=== PATIENT | female | born 1940 | race Caucasian/White ===

== ENCOUNTER 2016-09-07 21:52 | Emergency (ER) | payer MEDICARE, OTHER ==
[~2016-09-07] VITALS: Ht 162.5 cm; Wt 56.7 kg
[~2016-09-07 21:52] MED LIST: ANTIVERT12.5 MG PO; ATENOLOL25 MG PO; GLYBURIDE5 MG PO; LANTUS100 U/ML SC
[2016-09-07] MEDS ORDERED: MORPHINE SULFAT15 MG PO (22:05)
[2016-09-07] MEDS ORDERED: LYRICA75 M1 PO (22:05)
[2016-09-07] MEDS ORDERED: CETIRIZINE10 MG PO (22:05)
[2016-09-07] MEDS ORDERED: CITALOPRAM40 MG PO (22:06)
[2016-09-07] MEDS ORDERED: ENABLEX7.5 MG PO (22:06)
[2016-09-07] MEDS ORDERED: LIPITOR20 MG PO (22:07)
[2016-09-07] MEDS ORDERED: VITAMIN B12 1541 TAB PO (22:07)
[2016-09-07] MEDS ORDERED: PLAVIX75 M1 PO (22:07)
[2016-09-07] MEDS ORDERED: CALCIUM 600 +1 EA11 PO (22:08)
[2016-09-07] MEDS ORDERED: GLYCOLAX17 GM/DOSE PO (22:08)
[2016-09-07] MEDS ORDERED: IRON325 M2 PO (22:08)
[2016-09-07] MEDS ORDERED: PREDNISONE10 MG PO (22:21)
== END 2016-09-07 23:05 | disposition home or self-care (01) ==
LOC: ED 21:52
DX: L23.7 Allergic contact dermatitis due to plants, except food (principal); F17.200 Nicotine dependence, unspecified, uncomplicated; Z79.4 Long term (current) use of insulin; Z79.899 Other long term (current) drug therapy

== ENCOUNTER 2019-05-16 18:25 | Emergency (ER) | payer MEDICARE, OTHER ==
[~2019-05-16] VITALS: Ht 154.9 cm; Wt 48.5 kg
[~2019-05-16 18:25] MED LIST changes: +CALCIUM 600 +1 EA11 PO; +CETIRIZINE10 MG PO; +CITALOPRAM40 MG PO; +ENABLEX7.5 MG PO; +GLYCOLAX17 GM/DOSE PO; +IRON325 M2 PO; +LIPITOR20 MG PO; +LYRICA75 M1 PO; +MORPHINE SULFAT15 MG PO; +PLAVIX75 M1 PO; +PREDNISONE10 MG PO; +VITAMIN B12 1541 TAB PO
[2019-05-16] MEDS ORDERED: ANTIBIOTIC28.4 GM T (20:59)
[2019-05-16] MEDS ORDERED: KEFLEX500 M1 PO (20:59)
== END 2019-05-16 20:58 | disposition home or self-care (01) ==
LOC: ED 18:25
DX: S80.12XA Contusion of left lower leg, initial encounter (principal); S09.90XA Unspecified injury of head, initial encounter; S60.414A Abrasion of right ring finger, initial encounter; M25.461 Effusion, right knee; I10 Essential (primary) hypertension; E11.9 Type 2 diabetes mellitus without complications; Z79.899 Other long term (current) drug therapy; Z88.5 Allergy status to narcotic agent; W10.8XXA Fall (on) (from) other stairs and steps, initial encounter; Y93.01 Activity, walking, marching and hiking; Y92.89 Other specified places as the place of occurrence of the external cause; Y99.8 Other external cause status

== ENCOUNTER 2021-12-17 12:21 | Emergency (ER) | payer MEDICARE, OTHER ==
[~2021-12-17] VITALS: Ht 152.4 cm; Wt 63.5 kg
[~2021-12-17 12:21] MED LIST changes: +ANTIBIOTIC28.4 GM T; +KEFLEX500 M1 PO
[2021-12-17 13:47] LABS: BILIRUBIN Negative (Negative); BLOOD Trace-Lysed (Negative); CLARITY Cloudy (Clear); COLOR Yellow (Yellow); GLUCOSE Negative (Negative); KETONE Negative (Negative); LEUKO ESTERASE 3+ (Negative); NITRITE Positive (Negative); PH 5.5 (4.5-8.0); SPECIFIC GRAVITY 1.015 (1.001-1.030)
[2021-12-17 13:57] LABS: BACTERIA 4+; WBC TNTC wbc/hpf (0-5)
[2021-12-17 14:11] LABS: ALKALINE PHOSPHATASE 104 U/L (45-117); BUN 17 mg/dl (7-24); CHLORIDE 104 mmol/L (98-107); CREATININE 1.05 mg/dL (0.55-1.02); POTASSIUM 4.2 mmol/L (3.5-5.1); SGOT/AST 19 IU/L (3-35); SGPT/ALT 16 U/L (12-78); SODIUM 136 mmol/L (136-145); TOTAL PROTEIN 7.4 gm/dL (6.4-8.2)
[2021-12-17 14:20] LABS: BASO % 0.6 % (0.0-1.0); EOS # 0.2 10*3/uL (0.0-0.4); EOS % 3.4 % (1.0-4.0); LYMPH # 1.3 10*3/uL (1.3-4.4); LYMPH % 20.5 % (27.0-41.0); MEAN CELL VOLUME 87.4 fl (81.0-99.0); MEAN CORPUSCULAR HGB CONC 32.1 g/dl (33.0-37.0); MEAN PLATELET VOLUME 10.8 fl (9.6-12.3); MONO # 0.8 10*3/uL (0.1-1.0); MONO % 12.2 % (3.0-9.0); NEUT % 62.4 % (47.0-73.0); PLATELET COUNT AUTOMATED 165 10*3/uL (130-400); RED BLOOD COUNT 3.89 10*6/uL (4.10-5.10); RED CELL DISTRI WIDTH 14.6 % (0-14.5); WHITE BLOOD COUNT 6.5 10*3/uL (4.8-10.8)
[2021-12-17] MEDS ORDERED: OMNICEF300 MG PO (14:41)
== END 2021-12-17 14:55 | disposition home or self-care (01) ==
LOC: ED 12:21
PROVIDERS: Internal Medicine
DX: N39.0 Urinary tract infection, site not specified (principal); Z79.899 Other long term (current) drug therapy

== ENCOUNTER → 2023-10-29 | Outpatient (CLI) | payer MEDICARE, OTHER ==
[~2023-10-29] MED LIST changes: +OMNICEF300 MG PO
== END | disposition home or self-care (01) ==
LOC: RAD 12:42
PROVIDERS: ATTEND Chiropractor
DX: M19.072 Primary osteoarthritis, left ankle and foot (principal); M77.32 Calcaneal spur, left foot; M25.552 Pain in left hip; M79.605 Pain in left leg; M25.572 Pain in left ankle and joints of left foot; M79.672 Pain in left foot

== ENCOUNTER 2024-02-13 01:55 | Inpatient (IN) | payer MEDICARE, OTHER ==
[2024-02-13] VITALS (9 sets, daily range): BP systolic 121–195; BP diastolic 42–81
[~2024-02-13] VITALS: Ht 152.4 cm; Wt 66.3 kg
[2024-02-13 02:47] LABS: BILIRUBIN Negative (Negative); BLOOD Negative (Negative); CLARITY Clear (Clear); COLOR Yellow (Yellow); GLUCOSE Negative (Negative); KETONE Negative (Negative); LEUKO ESTERASE 1+ (Negative); NITRITE Positive (Negative); PH 6.5 (4.5-8.0); SPECIFIC GRAVITY 1.015 (1.001-1.030)
[2024-02-13 03:19] LABS: BACTERIA 3+
[2024-02-13 03:32] LABS: BASO % 0.3 % (0.0-1.0); EOS # 0.1 10*3/uL (0.0-0.4); EOS % 0.8 % (1.0-4.0); HEMATOCRIT 36.7 % (37.0-47.0); MEAN CELL VOLUME 91.5 fl (81.0-99.0); MEAN CORPUSCULAR HGB 28.7 pg (27.0-31.0); MEAN CORPUSCULAR HGB CONC 31.3 g/dl (33.0-37.0); MEAN PLATELET VOLUME 11.4 fl (9.6-12.3); MONO # 0.6 10*3/uL (0.1-1.0); MONO % 6.3 % (3.0-9.0); NEUT % 76.1 % (47.0-73.0); PLATELET COUNT AUTOMATED 181 10*3/uL (130-400); RED BLOOD COUNT 4.01 10*6/uL (4.10-5.10); RED CELL DISTRI WIDTH 14.8 % (0-14.5); WHITE BLOOD COUNT 9.2 10*3/uL (4.8-10.8)
[2024-02-13] MEDS ORDERED: SODIUM CHLORIDE 0.9% 1,000 ML IV ONE (03:35)
[2024-02-13] MEDS ORDERED: Ceftriaxone Sodium 1 GM/10 ML SYR IV ONE (03:35)
[2024-02-13] MEDS ORDERED: ASPIRIN ADULT L81 M1 PO (03:54)
[2024-02-13] MEDS ORDERED: PROTONIX TR40 MG PO (03:54)
[2024-02-13] MEDS ORDERED: BUTRANS1 EAC2 TD (03:55)
[2024-02-13] MEDS ORDERED: GLIPIZIDE XL5 M1 PO (03:55)
[2024-02-13 04:14] LABS: POTASSIUM 4.2 mmol/L (3.4-5.1)
[2024-02-13] MEDS ORDERED: TEMAZEPAM 15 MG CAP PO PRN (04:35)
[2024-02-13] MEDS ORDERED: MORPHINE Sulfate 2 MG/ML SYR IV PRN (04:35)
[2024-02-13] MEDS ORDERED: BISACODYL 5 MG TAB PO PRN (04:35)
[2024-02-13] MEDS ORDERED: Acetaminophen/Hydrocodone 5 MG/325 MG TABLET PO PRN (04:35)
[2024-02-13] MEDS ORDERED: ACETAMINOPHEN 325 MG TAB PO PRN (04:35)
[2024-02-13] MEDS ORDERED: ACETAMINOPHEN 650 MG SUPP R PRN (04:35)
[2024-02-13] MEDS ORDERED: Ondansetron Hydrochloride 4 MG/2 ML VIAL IV PRN (04:35)
[2024-02-13] MEDS ORDERED: BISACODYL 10 MG SUPP R PRN (04:35)
[2024-02-13] MEDS ORDERED: Magnesium Hydroxide 30 ML UDC PO PRN (04:35)
[2024-02-13] MEDS ORDERED: DEXTROSE 10 % IN WATER 250 ML IV PRN (05:30)
[2024-02-13] MEDS ORDERED: Pantoprazole Sodium 40 MG TAB PO SCH (06:00)
[2024-02-13] MEDS ORDERED: INSULIN LISPRO 1 UNIT/0.01 ML SQ SCH (07:30)
[2024-02-13] MEDS ORDERED: hydrALAZINE hydrochloride 20 MG/ML VIAL IV ONE (07:35)
[2024-02-13] MEDS ORDERED: SODIUM CHLORIDE 0.9% 1,000 ML IV SCH (08:05)
[2024-02-13] MEDS ORDERED: cloNIDine Hydrochloride 0.1 MG TAB PO ONE (08:20)
[2024-02-13] MEDS ORDERED: 'CLONIDINE0.1 MG (09:03)
[2024-02-13] MEDS ORDERED: Enoxaparin Sodium 30 MG/0.3 ML SYR SC SCH (10:00)
[2024-02-13] MEDS ORDERED: CITALOPRAM 20 MG TAB PO SCH (12:50)
[2024-02-13] MEDS ORDERED: PREGABALIN 75 MG CAP PO SCH (12:50)
[2024-02-13] MEDS ORDERED: cloNIDine Hydrochloride 0.1 MG TAB PO SCH (12:50)
[2024-02-13] MEDS ORDERED: ASPIRIN, CHEWABLE 81 MG TAB PO SCH (12:50)
[2024-02-13] MEDS ORDERED: ATORVASTATIN CALCIUM 20 MG TAB PO SCH (22:00)
[2024-02-13] MEDS ORDERED: Ceftriaxone Sodium 1 GM in SYRINGE INFUSION 10 ML IV SCH (22:00)
[2024-02-14 04:55] LABS: ACT PARTIAL THROMBO TIME 28.1 SECONDS (20.0-32.1)
[2024-02-14 04:58] LABS: FREE T4 1.1 ng/dl (0.89-1.76); POTASSIUM 3.8 mmol/L (3.4-5.1)
[2024-02-14 06:08] LABS: BASO % 0.4 % (0.0-1.0); EOS # 0.2 10*3/uL (0.0-0.4); EOS % 2.1 % (1.0-4.0); HEMATOCRIT 33.7 % (37.0-47.0); MEAN CELL VOLUME 91.6 fl (81.0-99.0); MEAN CORPUSCULAR HGB 28.5 pg (27.0-31.0); MEAN CORPUSCULAR HGB CONC 31.2 g/dl (33.0-37.0); MONO # 0.7 10*3/uL (0.1-1.0); MONO % 7.7 % (3.0-9.0); NEUT # 6.1 10*3/uL (2.3-7.9); NEUT % 67.9 % (47.0-73.0); PLATELET COUNT AUTOMATED 139 10*3/uL (130-400); RED BLOOD COUNT 3.68 10*6/uL (4.10-5.10); RED CELL DISTRI WIDTH 14.7 % (0-14.5)
[2024-02-14] MEDS ORDERED: SODIUM CHLORIDE 0.9% 1,000 ML IV ONE (07:30)
[2024-02-14 08:00] VITALS: BP 130/43
[2024-02-14] MEDS ORDERED: VANCOMYCIN/WATER FOR INJ (PEG) 150 ML IV SCH (08:00)
[2024-02-14 09:02] LABS: VITAMIN D, 25-HYDROXY 31.3 ng/mL (30-100)
[2024-02-14 20:00] VITALS: BP 128/58
[2024-02-15] VITALS: BP 167/72
[2024-02-15 06:33] LABS: BUN 13 mg/dl (9-23); CHLORIDE 103 mmol/L (98-107); POTASSIUM 3.9 mmol/L (3.4-5.1)
[2024-02-15 08:00] VITALS: BP 142/55
[2024-02-15] MEDS ORDERED: CLONIDINE HCL0.1 MG PO (08:21)
[2024-02-15] MEDS ORDERED: PHARMASSURE V500 MCG PO (08:25)
[2024-02-15] MEDS ORDERED: BUTRANS1 EAC2 TD (08:25)
[2024-02-15] MEDS ORDERED: CIPRO500 MG PO (08:25)
[2024-02-15] MEDS ORDERED: CYANOCOBALAMIN 500 MCG TAB PO SCH (10:00)
[2024-02-15 12:00] VITALS: BP 140/61
[2024-02-15 16:00] VITALS: BP 114/45
[2024-02-15 20:00] VITALS: BP 147/54
[2024-02-15] MEDS ORDERED: Ciprofloxacin Hydrochloride 500 MG TAB PO SCH (22:00)
[2024-02-16] VITALS: BP 159/64
[2024-02-16 08:00] VITALS: BP 165/58
[2024-02-16 08:15] VITALS: BP 162/60
[2024-02-16 12:00] VITALS: BP 142/51
== END 2024-02-16 14:00 | DRG 871 ==
LOC: ED 01:55 → EDHOLD 04:25 → ICCU 04:25 → EDHOLD 12:20 → ICCU 14:43 → 4E 02-14 17:42
PROVIDERS: Internal Medicine; Student in an Organized Health Care Education/Training Program; ADMIT Internal Medicine; ATTEND Internal Medicine
DX: A41.9 Sepsis, unspecified organism (principal); N17.0 Acute kidney failure with tubular necrosis; N39.0 Urinary tract infection, site not specified; D64.9 Anemia, unspecified; N18.32 Chronic kidney disease, stage 3b; E11.22 Type 2 diabetes mellitus with diabetic chronic kidney disease; R65.20 Severe sepsis without septic shock; E11.65 Type 2 diabetes mellitus with hyperglycemia; G89.29 Other chronic pain; I12.9 Hypertensive chronic kidney disease with stage 1 through stage 4 chronic kidney disease, or unspecified chronic kidney disease; M19.041 Primary osteoarthritis, right hand; M19.042 Primary osteoarthritis, left hand; Z96.641 Presence of right artificial hip joint; Z96.612 Presence of left artificial shoulder joint; B95.2 Enterococcus as the cause of diseases classified elsewhere; B96.20 Unspecified Escherichia coli [E. coli] as the cause of diseases classified elsewhere; W18.39XA Other fall on same level, initial encounter; Y93.01 Activity, walking, marching and hiking; Y92.098 Other place in other non-institutional residence as the place of occurrence of the external cause; Z86.73 Personal history of transient ischemic attack (TIA), and cerebral infarction without residual deficits; Y99.8 Other external cause status; Z79.82 Long term (current) use of aspirin; Z79.899 Other long term (current) drug therapy